=== PATIENT | female | born 1980 | race African-American/Black ===

== ENCOUNTER 2020-06-22 10:24 | Emergency (ER) | payer OTHER ==
[2020-06-22] MEDS ORDERED: NORMAL SALINE 1000 ML 1,000 ML IV ONE ×2 (11:04→15:22)
[2020-06-22] MEDS ORDERED: ONDANSETRON HCL INJ/PF 4 MG/2 ML SDV IV ONE (11:04)
--- NOTE | 2020-06-22 11:08 | ER Document Report ---
ED Medical Screen (RME) - General Chief Complaint: Constipation Stated Complaint: CONSTIPATION,DIARREHA Time Seen by Provider: 06/22/20 11:01 Mode of Arrival: Ambulatory Information source: Patient Notes: Patient presents complaining of constipation with lower abdominal pain, rectal pain and vaginal pain. Patient states her last bowel movement was about a week ago. Patient just had a very small bowel movement while here today. Patient complains of swelling to the vaginal area. Patient also reports that her blood sugar was high today. Patient denies any fever or vomiting. Patient reports a history of IBS TRAVEL OUTSIDE OF THE [place] IN LAST 30 DAYS: No - Related Data Allergies/Adverse Reactions: No Known Allergies Allergy (Verified 06/22/20 11:01) Home Medications: pain management. gabapentin. baclofen. clonidine. methadone. oxycodone. diclofenac. insulin. valium Past Medical History - Social History Chew tobacco use (# tins/day): No Frequency of alcohol use: None Drug Abuse: None Physical Exam - Vital signs Vitals: Temp Pulse Resp BP Pulse Ox 98.7 F 86 16 160/95 H 100 06/22/20 10:31 06/22/20 10:31 06/22/20 10:31 06/22/20 10:31 06/22/20 10:31 - General General appearance: Alert, Anxious In distress: Mild Notes: Patient restless in triage, continually repositioning, lower pelvic tenderness Course - Vital Signs Vital signs: Temp Pulse Resp BP Pulse Ox 98.7 F 86 16 160/95 H 100 06/22/20 11:01 06/22/20 10:31 06/22/20 10:31 06/22/20 10:31 06/22/20 10:31
[2020-06-22 11:30] LABS: ABSOLUTE BASOPHILS # (AUTO) 0.1 10^3/uL (0.0-0.2); ABSOLUTE LYMPHOCYTES (AUTO) 1.4 10^3/uL (0.5-4.7); ABSOLUTE MONOCYTES (AUTO) 0.6 10^3/uL (0.1-1.4); ABSOLUTE NEUT (AUTO) 13.3 10^3/uL (1.7-8.2); BASOPHILS % (AUTO) 0.8 % (0-2); EOSINOPHILS % (AUTO) 0.1 % (0-6); HEMATOCRIT 42.4 % (36.0-47.0); HEMOGLOBIN 14.5 g/dL (12.0-15.5); LYMPHOCYTES % (AUTO) 9.1 % (13-45); MEAN CORPUSCULAR HEMOGLOBIN 31.9 pg (27.0-33.4); MEAN CORPUSCULAR HGB CONC 34.3 g/dL (32.0-36.0); MEAN CORPUSCULAR VOLUME 93 fl (80-97); MONOCYTES % (AUTO) 3.8 % (3-13); PLATELET COUNT 246 10^3/uL (150-450); RED BLOOD COUNT 4.56 10^6/uL (3.72-5.28); RED CELL DISTRIBUTION WIDTH 13.6 % (11.5-14.0); SEGMENTED NEUTROPHILS % (AUTO) 86.2 % (42-78); TOTAL CELLS COUNTED % (AUTO) 100 %; WHITE BLOOD COUNT 15.4 10^3/uL (4.0-10.5)
[2020-06-22 11:32] LABS: VENOUS BLOOD BASE EXCESS -3.5 mmol/L; VENOUS BLOOD HCO3 21.5 mmol/L (20-32); VENOUS BLOOD PCO2 38.9 mmHg (35-63); VENOUS BLOOD PH 7.36 (7.30-7.42)
--- NOTE | 2020-06-22 12:09 | RADIOLOGY REPORT (SQ) ---
EXAM DESCRIPTION: KUB/ABDOMEN (SINGLE VIEW) IMAGES COMPLETED DATE/TIME: 06/22/2020 12:00 pm REASON FOR STUDY: constipation COMPARISON: None. NUMBER OF VIEWS: One view. TECHNIQUE: Supine radiographic image of the abdomen acquired. LIMITATIONS: None. FINDINGS: BOWEL GAS PATTERN: Nonobstructive gas pattern. There is a large amount of retained stool. CALCIFICATIONS: No suspicious calcifications. SOFT TISSUES: No gross mass or suggestion of organomegaly. HARDWARE: None in the abdomen. BONES: No acute fracture. No worrisome bone lesions. OTHER: No other significant finding. IMPRESSION: Constipation. Large stool burden. TECHNICAL DOCUMENTATION: JOB ID: [id number] 2010 [email or web address]- All Rights Reserved Reading location - IP/workstation name: [email or web address]
[2020-06-22] MEDS ORDERED: LIDOCAINE 2% URO-JET 5 ML KIT MM ONE ×2 (13:20→15:33)
--- NOTE | 2020-06-22 13:20 | ER Document Report ---
Entered by ARIANA MCGEE SCRIBE 06/22/20 1141 Acting as scribe for:ALEXA FAUSTIN MD ED General - General Chief Complaint: Constipation Stated Complaint: CONSTIPATION,DIARREHA Time Seen by Provider: 06/22/20 11:01 [facility] Care Provider: [facility] [Primary [facility]] - Follow up as needed Mode of Arrival: Ambulatory Information source: Patient Notes: This 39 year old female patient presents to the emergency department today with complaints of constipation which began last night. She is on pain management taking 10mg oxycodone QID and methadone 20 BID which she rpeorts is for chronic neck/back pain. Patient has diarrhea type IBS and so she has never taken anything for opiate induced constipation. She reports that she has hemorrhoids which are pretty painful, she has passed mucus but not stool in the last day. TRAVEL OUTSIDE OF THE [place] IN LAST 30 DAYS: No - Related Data Allergies/Adverse Reactions: ibuprofen [From Motrin] Adverse Reaction (Verified 06/22/20 11:20) metformin Adverse Reaction (Verified 06/22/20 11:20) Home Medications: pain management. gabapentin. baclofen. clonidine. methadone. oxycodone. diclofenac. insulin. valium Past Medical History - General Information source: Patient - Social History Smoking Status: Never Smoker Cigarette use (# per day): No Chew tobacco use (# tins/day): No Frequency of alcohol use: None Drug Abuse: None Lives with: Family Family History: Reviewed & Not Pertinent Patient has homicidal ideation: No Musculoskeletal Medical History: Reports Other - chronic neck/back pain, in pain management Surgical Hx: Negative Review of Systems - Review of Systems Constitutional: No symptoms reported EENT: No symptoms reported Cardiovascular: No symptoms reported Respiratory: No symptoms reported Gastrointestinal: See HPI, Constipation, Other - rectal pain Genitourinary: No symptoms reported Female Genitourinary: No symptoms reported Musculoskeletal: No symptoms reported Skin: No symptoms reported Hematologic/Lymphatic: No symptoms reported Neurological/Psychological: No symptoms reported -: Yes All other systems reviewed and negative Physical Exam - Vital signs Vitals: Temp Pulse Resp BP Pulse Ox 98.7 F 86 16 160/95 H 100 06/22/20 10:31 06/22/20 10:31 06/22/20 10:31 06/22/20 10:31 06/22/20 10:31 - Notes Notes: Physical Exam: General: Alert, appears well. HEENT: Normocephalic. Atraumatic. PERRL. Extraocular movements intact. Oropharynx clear. Neck: Supple. Non-tender. Respiratory: No respiratory distress. Clear and equal breath sounds bilaterally. Cardiovascular: Regular rate and rhythm. Abdominal: Obese. Non-tender. No distension. Normal Bowel Sounds. Female Genitourinary/Rectal: Exam performed with sweat box attendant in attendance. Right labia majora is swollen, swelling increases inferiorly, there are hemorrhoids at the 6/11 oclock positions in the dorsal lithotomy position. Mons pubis on the right-hand side is a little puffy but it is not tender, mons pubis on the left is tender to palpation over the bony processes but there is no soft tissue tenderness. Back: No gross abnormalities. Extremities: Moves all four extremities. Upper extremities: Normal inspection. Normal ROM. Lower extremities: Normal inspection. No edema. Normal ROM. Neurological: Normal cognition. AAOx4. Normal speech. Psychological: Normal affect. Normal Mood. Skin: Warm. Dry. Normal color. Course - Re-evaluation Re-evalutation: 06/22/20 18:59 Dr. Fernandez from the hospitalist service came to see the patient and examined her. She got some additional history that the labial swelling had actually been going down over the last few days. She does not feel patient needs to be on antibiotics and can probably do well at home taking MiraLAX every day. We will hold the antibiotics until the blood cultures come back. I discussed this with the patient, and we talked about her putting pressure on her hemorrhoids to reduce them and always do that after each bowel movement when they come back out. She is instructed to take MiraLAX every day, drink lots of fluids throughout the day in the evening. She is also to drink mag citrate every day until her bowels are moving really well. Advised her that she can drink an ounce at a time off and on throughout the day since it is not a very palatable liquid. - Vital Signs Vital signs: Temp Pulse Resp BP Pulse Ox 98.4 F 102 H 20 139/77 H 100 06/22/20 17:38 06/22/20 17:38 06/22/20 17:38 06/22/20 17:38 06/22/20 17:38 - Laboratory Result Diagrams: 06/22/20 11:11 06/22/20 13:02 Laboratory results interpreted by me: 06/22/20 06/22/20 06/22/20 11:11 13:02 13:35 WBC 15.4 H Lymph % (Auto) 9.1 L Absolute Neuts (auto) 13.3 H Seg Neutrophils % 86.2 H Potassium 5.4 H Chloride 108 H Glucose 300 H Direct Bilirubin 0.5 H AST 48 H ALT 56 H Urine Glucose (UA) >=500 H Urine Ketones TRACE H Urine Blood SMALL H - Diagnostic Test Radiology reviewed: Image reviewed, Reports reviewed - IV contrast CT scan abdomen pelvis did not show any acute inflammatory process. Discharge - Discharge Clinical Impression: Swelling of labia Constipation Qualifiers: Constipation type: drug induced constipation Qualified Code(s): K59.03 - Drug induced constipation Hemorrhoids Qualifiers: Hemorrhoid type: second degree Qualified Code(s): K64.1 - Second degree hemorrhoids Condition: Stable Disposition: HOME, SELF-CARE Additional Instructions: Take MiraLAX every day. Drink mag citrate up to 1 bottle a day until your bowels are moving well. You may drink small portions of the mag citrate throughout the day. Put gentle pressure on your hemorrhoids to reduce them after every bowel movement. Drink plenty of water throughout the day in the evening for the next few days until your bowels are moving well. Follow-up with your primary care provider if not improving. RETURN TO THE EMERGENCY ROOM IF ANY NEW OR WORSENING SYMPTOMS. Referrals: [facility] [Primary Care Provider] - Follow up as needed I personally performed the services described in the documentation, reviewed and edited the documentation which was dictated to the scribe in my presence, and it accurately records my words and actions.
[2020-06-22] MEDS ORDERED: MINERAL OIL 30 ML UDCUP PR ONE (13:21)
[2020-06-22 13:38] LABS: ALBUMIN 3.9 g/dL (3.5-5.0); ALKALINE PHOSPHATASE 94 U/L (38-126); ANION GAP 5 (5-19); ASPARTATE AMINO TRANSFERASE 48 U/L (14-36); BILIRUBIN,DIRECT 0.5 mg/dL (0.0-0.4); BILIRUBIN,TOTAL 0.7 mg/dL (0.2-1.3); BLOOD UREA NITROGEN 7 mg/dL (7-20); CALCIUM 8.6 mg/dL (8.4-10.2); CARBON DIOXIDE 24 mmol/L (22-30); CHLORIDE 108 mmol/L (98-107); GLUCOSE 300 mg/dL (75-110); POTASSIUM 5.4 mmol/L (3.6-5.0); TOTAL PROTEIN 7.1 g/dL (6.3-8.2)
[2020-06-22 14:16] LABS: APPEARANCE,URINE CLEAR; BILIRUBIN,URINE NEGATIVE (NEGATIVE); COLOR,URINE YELLOW; GLUCOSE, URINE >=500 mg/dL (NEGATIVE); KETONES,URINE TRACE mg/dL (NEGATIVE); LEUKOCYTE ESTERASE,URINE NEGATIVE (NEGATIVE); NITRITE,URINE NEGATIVE (NEGATIVE); PROTEIN,URINE NEGATIVE (NEGATIVE); URINE SPECIFIC GRAVITY 1.031; UROBILINOGEN,URINE NEGATIVE mg/dL (<2.0)
[2020-06-22] MEDS ORDERED: MAGNESIUM CITRATE 296 ML BOTTLE PO ONE (15:22)
[2020-06-22] MEDS ORDERED: CLINDAMYCIN 600 MG/D5W RTU 600 MG/50 ML RTUPB IV ONE (17:36)
--- NOTE | 2020-06-22 18:45 | RADIOLOGY REPORT (SQ) ---
EXAM DESCRIPTION: CT ABD/PELVIS WITH IV ONLY IMAGES COMPLETED DATE/TIME: 06/22/2020 6:33 pm REASON FOR STUDY: Perineal swelling, leukocytosis, IDDM COMPARISON: None. TECHNIQUE: CT scan of the abdomen and pelvis performed using helical scanning technique with dynamic intravenous contrast injection. No oral contrast. Images reviewed with lung, soft tissue, and bone windows. Reconstructed coronal and sagittal MPR images reviewed. Delayed images for evaluation of the urinary system also acquired. All images stored on PACS. All CT scanners at this facility use dose modulation, iterative reconstruction, and/or weight based d osing when appropriate to reduce radiation dose to as low as reasonably achievable (ALARA). [facility]: Dose Right [facility]: CareDose [facility]: Dose Right [facility]: Teradose 4D [facility]: [employer] CONTRAST TYPE AND DOSE: contrast/concentration: Isovue 350.00 mmol/ml; Total Contrast Delivered: 83. 0 ml; Total Saline Delivered: 35.4 ml RENAL FUNCTION: BUN 7 creatinine 0.61 RADIATION DOSE: CT Rad equipment meets quality standard of care and radiation dose reduction techniq ues were employed. CTDIvol: 7.6 - 10.8 mGy. DLP: 988 mGy-cm.. LIMITATIONS: None. FINDINGS: LOWER CHEST: No significant findings. No nodules or infiltrates. LIVER: Normal size. No masses. No dilated ducts. SPLEEN: Normal size. No focal lesions. PANCREAS: No masses. No significant calcifications. No adjacent inflammation or peripancreatic fluid collections. Pancreatic duct not dilated. GALLBLADDER: No identified stones by CT criteria. No inflammatory changes to suggest cholecystitis. ADRENAL GLANDS: No significant masses or asymmetry. RIGHT KIDNEY AND URETER: No solid masses. No significant calcifications. No hydronephrosis or hyd roureter. LEFT KIDNEY AND URETER: No solid masses. No significant calcifications. No hydronephrosis or hydr oureter. AORTA AND VESSELS: No aneurysm. No dissection. Renal arteries, SMA, celiac without stenosis. RETROPERITONEUM: No retroperitoneal adenopathy, hemorrhage or masses. BOWEL AND PERITONEAL CAVITY: There is considerable retained stool. No obvious bowel mass or obstruct ion. No inflammatory changes. APPENDIX: Not identified. PELVIS: Urinary bladder is normal. There is a 2 cm left adnexal cyst. ABDOMINAL WALL: No masses. No hernias. BONES: No significant or acute findings. OTHER: No other significant finding. IMPRESSION: 1. Possible constipation. 2. 2 cm left adnexal cyst. This is almost certainly benign. No additional imaging is required for this. TECHNICAL DOCUMENTATION: JOB ID: [id number] Quality ID # [id number]: Final reports with documentation of one or more dose reduction techniques (e.g., Au tomated exposure control, adjustment of the mA and/or kV according to patient size, use of iterative reconstruction technique) 2010 [employer]- All Rights Reserved Reading location - IP/workstation name: [email or web address]
[2020-06-22 19:39] VITALS: BP 135/71
== END 2020-06-22 19:39 | disposition home or self-care (01) ==
LOC: ER 10:24
DX: K64.1 Second degree hemorrhoids (principal); K59.03 Drug induced constipation; R22.2 Localized swelling, mass and lump, trunk; R19.7 Diarrhea, unspecified; Z79.84 Long term (current) use of oral hypoglycemic drugs
CPT/HCPCS: 99285; 96361; 96375; 96365; 36415; 87040; 84703; 85025; 87077; 80053; 81001; 82803; 87150 ×26; 74018; 74177; J3490 ×3; J2405; J7030